=== PATIENT | female | born 1955 | race Two or more races ===

== ENCOUNTER 2018-03-15 17:23 | Emergency (ER) | payer OTHER, MEDICAID ==
[2018-03-15] MEDS: HYDROcodone/APAP 5/325MG 1 TAB TABLET PO (18:53)
== END 2018-03-15 18:58 | disposition home or self-care (01) ==
LOC: ER 18:58
DX: T63.301A Toxic effect of unspecified spider venom, accidental (unintentional), initial encounter (principal); M79.645 Pain in left finger(s); Y92.89 Other specified places as the place of occurrence of the external cause
CPT/HCPCS: 99283

== ENCOUNTER 2018-06-04 03:38 | Emergency (ER) | payer OTHER ==
[~2018-06-04] VITALS: Ht 137.2 cm; Wt 90.3 kg
[~2018-06-04 03:38] MED LIST: CEPH-264 PO; HYDR-971 PO
[2018-06-04 03:49] VITALS: BP 180/87
[2018-06-04] MEDS ORDERED: TRIA15CR2 TP (04:02)
--- NOTE | 2018-06-04 04:25 | PHYS DOC ---
Past Medical History Past Medical History: No Pertinent History Past Surgical History: Other Additional Past Surgical Histo: RIGHT SHOULDER Alcohol Use: None Drug Use: None Adult General Chief Complaint Chief Complaint: INSECT BITE HPI HPI Patient is a 62 year old female female with bright. She is had a bug infestation reportedly in her building apparently she had sprayed she thought there might be bedbugs in her. She is having itching throughout her body. Allergies Allergies Allergies Coded Allergies Type Severity Reaction Last Updated Verified No Known Drug Allergies 03/15/18 No Physical Exam Physical Exam Constitutional: Well developed, well nourished, no acute distress, non-toxic appearance. [] HENT: Normocephalic, atraumatic, bilateral external ears normal, oropharynx moist, no oral exudates, nose normal. [] Abdomen: Bowel sounds normal, soft, no tenderness, no masses, no pulsatile masses. [] Skin: Scattered bug bites throughout face back and thorax Extremities: No tenderness, no cyanosis, no clubbing, ROM intact, no edema. [] Neurologic: Alert and oriented X 3, normal motor function, normal sensory function, no focal deficits noted. [] Psychologic: Affect normal, judgement normal, mood normal. [] EKG EKG [] Radiology/Procedures Radiology/Procedures [] Course & Med Decision Making Course & Med Decision Making Pertinent Labs and Imaging studies reviewed. (See chart for details) []Advised her blood pressure checked within 1 month. Prescription for triamcinolone cream was given she has scattered bug bites they do not appear to be a scabies pattern probable bedbugs or fleas. Encouraged to have proper extermination techniques Dragon Disclaimer Dragon Disclaimer This electronic medical record was generated, in whole or in part, using a voice recognition dictation system. Departure Departure Impression: Primary Impression: Insect bite Disposition: HOME, SELF-CARE Condition: STABLE Patient Instructions: Insect Bite, [id number] Scripts Triamcinolone Acetonide (TRIAMCINOLONE ACETONIDE 0.025% CREAM) 15 Gm Cream..g. 1 NANCY TP BID, #30 GM Prov: MEAGAN SHEPPARD MD 06/04/18 MEAGAN SHEPPARD MD Jun 04, 2018 04:25
== END 2018-06-04 04:15 | disposition home or self-care (01) ==
LOC: ER 03:38
DX: S00.86XA Insect bite (nonvenomous) of other part of head, initial encounter (principal); S20.461A Insect bite (nonvenomous) of right back wall of thorax, initial encounter; W57.XXXA Bitten or stung by nonvenomous insect and other nonvenomous arthropods, initial encounter; Y93.89 Activity, other specified; Y99.8 Other external cause status; Y92.89 Other specified places as the place of occurrence of the external cause
CPT/HCPCS: 99283

== ENCOUNTER → 2018-08-14 | Outpatient (CLI) | payer OTHER ==
[~2018-08-14] MED LIST changes: +TRIA15CR2 TP
--- NOTE | 2018-08-17 08:56 | RAD ---
DATE: 08/14/2018 EXAM: MAMMO JUANPABLO SCREENING BILATERAL HISTORY: Routine screening COMPARISON: None available This study was interpreted with the benefit of Computerized Aided Detection (CAD). Breast Density: SCATTERED The breast parenchyma shows scattered fibroglandular densities. Breast parenchyma level B. FINDINGS: 2-D and 3-D tomosynthesis imaging was performed in CC and MLO projections. There are several small smooth nodules in both breasts. Multiple smooth nodules such as this are typically benign. No spiculated mass or architectural distortion is seen. Benign type calcifications are present. No suspicious microcalcifications are evident. IMPRESSION: Probably benign smooth bilateral breast nodules. In the absence of previous mammograms to establish stability, mammographic surveillance consisting of bilateral mammography in 6 months and then at yearly intervals is suggested. BI-RADS CATEGORY: 3 PROBABLY BENIGN FINDING(S)-SHORT INTERVAL FOLLOW-UP SUGGESTED RECOMMENDED FOLLOW-UP: 6M 6 MONTH FOLLOW-UP PQRS compliance statement: Patient information was entered into a reminder system with a target due date for the next mammogram. Mammography is a sensitive method for finding small breast cancers, but it does not detect them all and is not a substitute for careful clinical examination. A negative mammogram does not negate a clinically suspicious finding and should not result in delay in biopsying a clinically suspicious abnormality. "Our facility is accredited by the [employer] Mammography Program."
== END | disposition home or self-care (01) ==
LOC: MAMMO 09:22
PROVIDERS: ATTEND Family Medicine
DX: Z12.31 Encounter for screening mammogram for malignant neoplasm of breast (principal)
CPT/HCPCS: 77063; 77067